=== PATIENT | male | born 1990 | race Caucasian/White ===

== ENCOUNTER 2020-07-30 20:05 | Emergency (ER) | payer OTHER, SELFPAY ==
[2020-07-30 20:18] VITALS: BP 151/84; PULSE 90; RESP 16; TEMP 36.8; O2SAT 98; BMI 29.9
[2020-07-30 20:31] VITALS: BP 138/79; PULSE 74; RESP 16; TEMP 36.8
--- NOTE | 2020-07-30 20:33 | HMH.EDUTC ---
[facility] [place] Disposition Clinical Impression: Swollen lymph nodes Disposition: Home, Self-Care Condition on Discharge: Good Instructions: DI for Epidermal Cyst, Cephalexin Additional Instructions: Warm compresses to the area my help with pain and discomfort Take medication as prescribed Watch area for worsening of swelling or redness FOllow up with Dermatology as recommended for further evaluation Return if needed Straight to ER if any life threatening symptoms Prescriptions: cephALEXin [cephALEXin 500mg capsule*] 500 mg PO Q6H 7 Days #28 cap Prescription Printed Referrals: PCP,Norma [Primary Care Provider] - As needed Horace Jacobo MD [Referring] - (Call office for appointment. Your referral was faxed) Time of Disposition: 20:38 Medical Decision Making - Wilner Inquiry Pt receiving controlled substance: No Wilner was queried for this patient: No Vital Signs: 07/30/20 20:18 07/30/20 20:31 Temperature 98.3 F 98.2 F Temperature Source Oral Pulse Rate 74 Pulse Rate [Right] 90 Respiratory Rate 16 16 Blood Pressure 138/79 Blood Pressure [Right Arm] 151/84 H Blood Pressure Mean [Right Arm] 106 Blood Pressure Source [Right Arm] Automatic Cuff Blood Pressure Position [Right Arm] Sitting 02 Sat by Pulse Oximetry 98 Oxygen Delivery Method Room Air [facility] [place] HPI - General Stated complaint: painful knot on neck Time Seen by Provider: 07/30/20 20:25 Mode of Arrival: Ambulatory Source of Information: Patient Limitations: No Limitations Description of Symptoms (Recalled from Triage Doc. by RN): pt has a knot at the base of the back of his neck. states its been there about three months but its really starting to aggrevate him and is painful HEENT Symptoms (Recalled from RN notes): No Resp Symptoms (Recalled from RN notes): No Skin Symptoms (Recalled from RN notes): Yes (knot under the skin on the base of his neck. the skin is red but intact.) MS Symptoms (Recalled from RN notes): No Functional Status (Recalled from RN notes): na - History of Present Illness Provider Complaint: Patient state that he noticed small knot like area on the back of his neck about 3 months ago States that he has been watching it and it hasnt been bothering him but now it is sore and swelling and red States that he was concerned so he came in to get it checked States that he has been looking it up online and got worried - Related Data Previous Rx's Medication Instructions Recorded cephALEXin [cephALEXin 500mg 500 mg PO Q6H 7 Days #28 cap 07/30/20 capsule*] Allergies Allergy/AdvReac Type Severity Reaction Status Date / Time No Known Allergies Allergy Verified 07/30/20 20:29 - Worker's Comp Is this a Worker's Comp case?: No [facility] History - Hepatitis A Screen Drug use history?: No High risk sexual behaviors?: No History of sexually transmitted infection?: No Currently employed?: No Childcare worker?: No Do you have indoor plumbing?: Yes Do you have electricity?: Yes Attestation statement:: This patient has been screened for Hepatitis A risk factors. I have reviewed the patient's past medical history: Yes - Social History Smoking Status: Current every day smoker # Packs/Day (cigarettes): 1 Alcohol Intake: never Occupational Status: employed ROS Obtained: Yes All systems reviewed & no additional complaints, Yes Systems reviewed as appropriate & no additional complaints - Constitutional Constitutional: Reports system reviewed and no additional complaints, except as docu, Denies body ache, Denies chills, Denies fever(s), Denies headache(s) - Integumentary/Breasts Comments: red marble sized hard tender area on back of neck Physical Exam - General General appearance: alert, in no apparent distress - Expanded Neck Exam 1 - [place] sized hard area with surrounding redness, reports tender to the touch, moveable no drainage - Respir
== END 2020-07-30 20:42 | disposition home or self-care (01) ==
PROVIDERS: Emergency Provider Nurse Practitioner
DX: R59.9 Enlarged lymph nodes, unspecified (principal); F17.210 Nicotine dependence, cigarettes, uncomplicated
CPT/HCPCS: 99202; G0463

== ENCOUNTER → 2023-02-03 15:35 | Outpatient (CLI) | payer OTHER, SELFPAY ==
--- NOTE | 2023-02-03 15:41 | XR_ITS ---
FINAL REPORT CLINICAL HISTORY: PLANTAR FASCITIS, left heel pain COMPARISON: None FINDINGS: LEFT FOOT: Three views of the left foot were obtained. There is no acute fracture or dislocation. There is mild degenerative change. No plantar calcaneal spurs. There is no soft tissue abnormality. IMPRESSION: Mild degenerative change without acute bony abnormality. Reviewed, Interpreted and Dictated by Goyo Sharp III, MD Transcribed by Oliva Lagunas Authenticated and [facility]
--- NOTE | 2023-02-03 15:41 | XR_ITS ---
FINAL REPORT CLINICAL HISTORY: PLANTAR FASCITIS, right heel pain COMPARISON: none FINDINGS: RIGHT FOOT: Three views of the right foot were obtained. There is no acute fracture or dislocation. Mild degenerative change. No evidence of plantar calcaneal spur. There is no soft tissue abnormality. IMPRESSION: Degenerative change without acute bony abnormality. Reviewed, Interpreted and Dictated by Goyo Sharp III, MD Transcribed by Oliva Lagunas Authenticated and [facility]
== END ==
PROVIDERS: PCP Family Medicine; Visit Provider Family Medicine
DX: M79.671 Pain in right foot (principal); M79.672 Pain in left foot; M72.2 Plantar fascial fibromatosis
CPT/HCPCS: 73630